=== PATIENT | female | born 1955 | race Caucasian/White ===

== ENCOUNTER 2022-03-31 10:24 | Emergency (ER) | payer OTHER ==
[2022-03-31 10:44] VITALS: TEMP 98.6
[2022-03-31] MEDS ORDERED: FAMOTIDINE 20 MG/2 ML VIAL IV STA (10:58)
[2022-03-31] MEDS ORDERED: diphenhydrAMINE 50 MG/ML 1 ML VIAL IVP STA (10:58)
[2022-03-31] MEDS ORDERED: methylPREDNISolone SOD SUCCI 125 MG/2 ML VIAL IV STA (10:58)
[2022-03-31] MEDS ORDERED: SODIUM CHLORIDE 0.9% 500 ML 500 ML IV STA (11:31)
--- NOTE | 2022-03-31 11:45 | ED ---
General Adult HPI - General Chief complaint: Allergic Reaction Stated complaint: med reaction Time Seen by Provider: 03/31/22 10:53 Source: patient, RN notes reviewed Mode of arrival: ambulatory Limitations: no limitations - History of Present Illness Initial comments: 66-year-old female coming into the emergency department for a rash. She notes the rash is itchy. Patient first noticed the rash 3 days ago, however last night she notes that it got worse. She has tried using Aveeno with no relief. She denies any new detergents or soaps. Denies any known allergens or new medication use. Denies fever, chills, difficulty breathing, shortness of breath. - Related Data Previous Rx's Medication Instructions Recorded predniSONE 50 mg PO DAILY #5 tab 03/31/22 Allergies Allergy/AdvReac Type Severity Reaction Status Date / Time No Known Allergies Allergy Verified 03/31/22 10:44 Review of Systems ROS Statement: Those systems with pertinent positive or pertinent negative responses have been documented in the HPI. ROS Other: All systems not noted in ROS Statement are negative. Past Medical History Past Medical History: Diabetes Mellitus, Hypertension History of Any Multi-Drug Resistant Organisms: None Reported Past Surgical History: No Surgical Hx Reported Past Psychological History: No Psychological Hx Reported Smoking Status: Never smoker Past Alcohol Use History: None Reported Past Drug Use History: None Reported General Exam Limitations: no limitations General appearance: alert, in no apparent distress Head exam: Present: atraumatic, normocephalic, normal inspection Eye exam: Present: normal appearance, PERRL, EOMI. Absent: scleral icterus, conjunctival injection, periorbital swelling ENT exam: Present: normal exam, mucous membranes moist Neck exam: Present: normal inspection. Absent: tenderness, meningismus, l ymphadenopathy Respiratory exam: Present: normal lung sounds bilaterally (Airway is patent). Absent: respiratory distress, wheezes, rales, rhonchi, stridor Cardiovascular Exam: Present: regular rate, normal rhythm, normal heart sounds. Absent: systolic murmur, diastolic murmur, rubs, gallop, clicks GI/Abdominal exam: Present: soft, normal bowel sounds. Absent: distended, tenderness, guarding, rebound, rigid Skin exam: Present: warm, dry, intact, normal color, urticaria (Diffuse, red, raised dry rash to upper extremities and trunk. No active weeping or drainage. ). Absent: rash Course Vital Signs 03/31/22 10:42 Temperature 98.6 F Pulse Rate 91 Respiratory 20 Rate Blood Pressure 143/72 O2 Sat by Pulse 96 Oximetry Medical Decision Making - Medical Decision Making 66-year-old female coming in for an ALLERGIC reaction. Patient was given IV Benadryl, Pepcid, Solu-Medrol and 500 mL fluid bolus with symptomatic improvement in the ER. Patient is comfortable being discharged home at this time all questions answered. Case discussed with Dr. Esteban. Disposition Clinical Impression: Allergic reaction Disposition: HOME SELF-CARE Condition: Stable Additional Instructions: Return to the ED if symptoms of worsening shortness of breath. Prescriptions: predniSONE 50 mg PO DAILY #5 tab Is patient prescribed a controlled substance at d/c from ED?: No Referrals: Sly Ornelas MD [Primary Care Provider] - 1-2 days Time of Disposition: 13:54
[2022-03-31 14:58] VITALS: BP 171/83; PULSE 82; RESP 18
== END 2022-03-31 14:58 | disposition home or self-care (01) ==
LOC: EC 10:24
DX: T78.40XA Allergy, unspecified, initial encounter (principal); E11.9 Type 2 diabetes mellitus without complications; I10 Essential (primary) hypertension
CPT/HCPCS: 99283; 96374; 96375 ×2; 96361; J1200; J2930